=== PATIENT | female | born 2005 | race Caucasian/White ===

== ENCOUNTER 2024-07-22 12:39 | Emergency (ER) | payer BC, MEDICAID ==
[~2024-07-22] VITALS: Ht 162.6 cm; Wt 78.2 kg
[2024-07-22] MEDS ORDERED: SERT25TA PO (13:45)
[2024-07-22] MEDS: LORazepam 1 MG tablet PO ONE (14:00)
[2024-07-22 14:02] VITALS: BP 120/77; PULSE 76; RESP 16; TEMP 98.3; O2SAT 100
== END 2024-07-22 14:04 | disposition home or self-care (01) ==
LOC: ER 12:39
DX: F41.0 Panic disorder [episodic paroxysmal anxiety] (principal); F41.9 Anxiety disorder, unspecified
CPT/HCPCS: 71045; 93005; 99283